=== PATIENT | female | born 1985 | race Caucasian/White ===

== ENCOUNTER 2018-12-17 20:56 | Emergency (ER) | payer OTHER ==
[~2018-12-17] VITALS: Ht 167.6 cm; Wt 131.5 kg
[2018-12-17 21:02] VITALS: BP 140/75
--- NOTE | 2018-12-17 21:09 | NUR ---
PT AMBULATED TO BED WITH BOYFRIEND
--- NOTE | 2018-12-17 21:10 | NUR ---
33 Y/O F SENT TO ED REFERRAL FROM URGENT CARE X30 MINUTES AGO WITH POSSIBLE DX OF "POPPED HERNIA" PER PT. PT HAS BEEN HAVING CLEAR WHITE DISCHARGE TO [facility] X3 WEEKS. PER PT "NOTICED A LITTLE BIT OF BLOOD WITH THE DISCHARGE TODAY." DENIES PAIN. SCANT DRIED YELLOW DRAINAGE NOTED AT [facility]. NO FOUL ODOR. FAMILY AT BEDSIDE. ERMD NOTIFIED. WILL CONTINUE TO MONITOR.
[2018-12-17] MEDS ORDERED: NEOMYCIN/POLYMYXIN/BACITRACIN 0.9 GM/1 PKT TP ONE (23:20)
--- NOTE | 2018-12-17 23:25 | NUR ---
Chandra bueno in ED - 12/17/18 at 2325 by [facility] EMT AT BEDSIDE TO DRESS WOUND WITH NON ADHERANT GAUZE.
--- NOTE | 2018-12-17 23:25 | NUR ---
EMT AT BEDSIDE TO DRESS WOUND WITH NON ADHERANT GAUZE.
[2018-12-17 23:26] VITALS: BP 132/70
--- NOTE | 2018-12-17 23:26 | NUR ---
Patient discharged with v/s stable. Written and verbal after care instructions given and explained. Patient alert, oriented and verbalized understanding of instructions. Ambulatory with steady gait. All questions addressed prior to discharge. ID band removed. Patient advised to follow up with PMD. Rx of NEOSPORIN given. Patient educated on indication of medication including possible reaction and side effects. Opportunity to ask questions provided and answered.
== END 2018-12-17 23:27 | disposition home or self-care (01) ==
LOC: MED 20:56
DX: K42.9 Umbilical hernia without obstruction or gangrene (principal)
CPT/HCPCS: 81025; 99284